=== PATIENT | male | born 1945 | race Caucasian/White ===

== ENCOUNTER → 2016-10-15 | Outpatient (CLI) | payer MEDICARE, OTHER ==
[~2016-10-15] MED LIST: CYCL1TAB18 PO; NOR10T GT; OMEP20CA5 OR; ROSU5TAB5 PO; TIOTCAP INH
[2016-10-15 10:02] LABS: Basophils # (auto) 0 uL; Basophils % (auto) 0.3 % (0.0-2.0); Eosinophils # (auto) 0.4 uL; Eosinophils % (auto) 3.3 % (0.0-7.0); Hematocrit 45.4 % (41.0-53.0); Hemoglobin 14.3 g/dL (13.5-17.5); Lymphocytes # (auto) 2.9 uL; Lymphocytes % (auto) 26.8 % (10.0-50.0); Mean Corpuscular Hemoglobin 28.5 pg (28.0-32.0); Mean Corpuscular Hgb Conc. 31.5 g/dL (32.0-36.0); Mean Corpuscular Volume 90.6 fL (80.0-100.0); Mean Platelet Volume 7.9 fL (7.4-10.4); Monocytes # (auto) 0.8 uL; Monocytes % (auto) 6.9 % (0.0-12.0); Neutrophils # (auto) 6.8 uL; Neutrophils % (auto) 62.7 % (37.0-80.0); Platelet Count (auto) 331 10^3/uL (140-450); Red Cell Distribution Width 13.4 % (11.6-16.0); White Blood Cell 10.9 10^3/uL (4.4-10.8)
[2016-10-15 10:47] LABS: Albumin 3.8 g/dL (3.4-5.0); BUN/Creatinine Ratio 21.8; Bilirubin, Total 0.4 mg/dL (0.2-1.0); Calcium 8.9 mg/dL (8.5-10.1); Total Protein 7.4 g/dL (6.4-8.2)
[2016-10-15 13:45] LABS: Urine Bilirubin Negative (Negative); Urine Blood Negative /uL (Negative); Urine Color Yellow (Yellow); Urine Glucose Normal (Normal); Urine Ketone Negative (Negative); Urine Mucus FEW (None Seen); Urine Nitrite Negative (Negative); Urine RBC 2 /hpf (0 - 3); Urine Urobilinogen Normal (Negative); Urine pH 6.5 (5.0-8.0)
== END | disposition home or self-care (01) ==
LOC: LAB 08:59
PROVIDERS: ATTEND Internal Medicine
DX: Z00.00 Encounter for general adult medical examination without abnormal findings (principal)
CPT/HCPCS: 36415; 80053; 80061; 81001; 83036; 85025; G0434

== ENCOUNTER → 2017-07-10 | Outpatient (CLI) | payer MEDICARE, MEDICAID ==
[~2017-07-10] MED LIST changes: -OMEP20CA5 OR; +OMEP20CA74 OR
[2017-07-10 12:22] LABS: Base Excess -1.8 mmol/L (-2.0-2.0); Blood 02Sat 87.7 % (96-100); Blood COHb 0.4 % (0.5-1.5); Blood MetHb 0.3 % (0.0-1.5); HCO3 22.2 mmol/L (22-26.0); HHb 12.2 % (0.0-5.0); MODE ROOM AIR; O2Hb 87.1 % (94.0-97.0); PCO2 35.7 mmHg (35.0-45.0); PCO2(T) 35.7 mmHg (35.0-45.0); PO2 59.9 mmHg (80.0-100.0); PO2(T) 59.9 mmHg (80.0-100.0); Sample Type Arterial; pH 7.411 (7.350-7.450)
== END | disposition home or self-care (01) ==
LOC: RT 11:12
PROVIDERS: ATTEND Internal Medicine Pulmonary Disease
DX: J44.9 Chronic obstructive pulmonary disease, unspecified (principal); I10 Essential (primary) hypertension
CPT/HCPCS: 36600; 82805

== ENCOUNTER 2017-09-23 13:53 | Inpatient (IN) | payer MEDICARE, MEDICAID ==
[~2017-09-23] VITALS: Ht 170.2 cm; Wt 59.5 kg
[2017-09-23 14:22] LABS: Basophils # (auto) 0.1 uL; Basophils % (auto) 0.8 % (0.0-2.0); Eosinophils # (auto) 0.4 uL; Eosinophils % (auto) 4.5 % (0.0-7.0); Hematocrit 37.1 % (41.0-53.0); Hemoglobin 12.2 g/dL (13.5-17.5); Lymphocytes # (auto) 1.8 uL; Lymphocytes % (auto) 22.3 % (10.0-50.0); Mean Corpuscular Hemoglobin 29.4 pg (28.0-32.0); Mean Corpuscular Hgb Conc. 32.9 g/dL (32.0-36.0); Mean Corpuscular Volume 89.4 fL (80.0-100.0); Monocytes # (auto) 0.6 uL; Monocytes % (auto) 8.2 % (0.0-12.0); Neutrophils # (auto) 5.1 uL; Neutrophils % (auto) 64.2 % (37.0-80.0); Platelet Count (auto) 302 10^3/uL (140-450); Red Blood Cells 4.16 10^6/uL (4.5-5.90); Red Cell Distribution Width 14.3 % (11.8-14.3); White Blood Cell 7.9 10^3/uL (4.4-10.8)
[2017-09-23 14:43] LABS: Alanine Aminotransferase 16 U/L (16-61); Albumin 3.3 g/dL (3.4-5.0); Alkaline Phosphatase 79 U/L (45-117); Anion Gap 7 (5-15); Aspartate Aminotransferase 13 U/L (15-37); BUN/Creatinine Ratio 28.4; Bilirubin, Total 0.3 mg/dL (0.2-1.0); Blood Urea Nitrogen 21 mg/dL (7-18); Carbon Dioxide 32 mmol/L (21-32); Chloride 104 mmol/L (98-107); GFR African American 134 mL/min; GFR Non-African American 111 mL/min; Glucose 105 mg/dL (74-106); Magnesium 2.2 mg/dL (1.6-2.6); Potassium 3.9 mmol/L (3.5-5.1); Sodium 143 mmol/L (136-145)
[2017-09-23] MEDS ORDERED: IPRATROPIUM BROM 0.5 MG/2.5ML INH SOL HHN ONE (20:00)
[2017-09-23] MEDS ORDERED: methylPREDNISolone SOD SUCC 125 MG/2 ML VL IV ONE (20:00)
[2017-09-23] MEDS ORDERED: ALBUTEROL SULF 2.5 MG/0.5ML(0.5%) NEB SOLN HHN ONE (20:00)
[2017-09-23] MEDS ORDERED: IPRATROPIUM BROM 0.5 MG/2.5ML INH SOL NEB ONE (21:30)
[2017-09-23] MEDS ORDERED: cefTRIAXone 1GM/10ml IVPUSH 10 ML IV ONE (21:30)
[2017-09-23] MEDS ORDERED: ALBUTEROL SULF 2.5 MG/0.5ML(0.5%) NEB SOLN NEB ONE (21:30)
[2017-09-23] MEDS ORDERED: ONDANSETRON HCL 4 MG/2 ML VIAL IV PRN (22:00)
[2017-09-23] MEDS ORDERED: ACETAMINOPHEN 500 MG TAB PO PRN (22:00)
[2017-09-23] MEDS ORDERED: AZITHROMYCIN 500MG/ 250ML 250 ML IV ONE (22:00)
[2017-09-23] MEDS: methylPREDNISolone SOD SUCC 40 MG/ML VL IV SCH (22:25)
[2017-09-24] MEDS: ALBUTEROL SULF 2.5 MG/0.5ML(0.5%) NEB SOLN NEB SCH ×4 (00:30→19:35)
[2017-09-24] MEDS: IPRATROPIUM BROM 0.5 MG/2.5ML INH SOL NEB SCH ×4 (00:30→19:34)
[2017-09-24 02:17] VITALS: BP 130/81
[2017-09-24] MEDS: HYDROcodone-ACET 5/325MG TAB PO PRN ×3 (03:18→22:26)
[2017-09-24] MEDS ORDERED: TEMAZEPAM 15 MG CAP PO ONE ×2 (04:45→22:00)
[2017-09-24] MEDS: methylPREDNISolone SOD SUCC 40 MG/ML VL IV SCH ×3 (06:12→22:17)
[2017-09-24 06:30] LABS: Basophils # (auto) 0 uL; Basophils % (auto) 0.1 % (0.0-2.0); Eosinophils # (auto) 0 uL; Eosinophils % (auto) 0.1 % (0.0-7.0); Hematocrit 36.7 % (41.0-53.0); Hemoglobin 11.9 g/dL (13.5-17.5); Lymphocytes # (auto) 0.5 uL; Lymphocytes % (auto) 14.9 % (10.0-50.0); Mean Corpuscular Hemoglobin 29.1 pg (28.0-32.0); Mean Corpuscular Hgb Conc. 32.5 g/dL (32.0-36.0); Mean Corpuscular Volume 89.5 fL (80.0-100.0); Monocytes # (auto) 0.1 uL; Neutrophils # (auto) 2.6 uL; Neutrophils % (auto) 82.9 % (37.0-80.0); Platelet Count (auto) 287 10^3/uL (140-450); White Blood Cell 3.2 10^3/uL (4.4-10.8)
[2017-09-24 06:52] LABS: Calcium 9.2 mg/dL (8.5-10.1); Potassium 3.9 mmol/L (3.5-5.1)
[2017-09-24 09:09] VITALS: BP 122/75
[2017-09-24] MEDS: AZITHROMYCIN 500MG/ 250ML 250 ML IV SCH (11:30)
[2017-09-24] MEDS ORDERED: PANTOPRAZOLE 40 MG TAB PO ONE (11:30)
[2017-09-24] MEDS ORDERED: POTASSIUM CHL 20 Meq TABLET PO ONE (11:30)
[2017-09-24] MEDS ORDERED: cefTRIAXone 1GM/10ml IVPUSH 10 ML IV ONE (11:30)
[2017-09-24] MEDS ORDERED: FUROSEMIDE 20 MG/2 ML VIAL IV ONE (11:30)
[2017-09-24 11:43] LABS: Urine Bacteria NONE SEEN /hpf (None Seen); Urine Blood Negative /uL (Negative); Urine Hyaline Cast FEW /lpf (0 - 2); Urine Mucus FEW (None Seen); Urine Specific Gravity 1.033 (1.001-1.035); Urine WBC 3 /hpf (0 - 3)
[2017-09-24 12:00] VITALS: BP 112/63
[2017-09-24] MEDS: CYCLOBENZAPRINE HCL 10 MG TAB PO SCH ×2 (14:19→22:18)
[2017-09-24 17:30] VITALS: BP 114/79
[2017-09-24] MEDS: BUDESONIDE (INHALATION) 0.5 MG/2 ML NEB NEB SCH (19:35)
[2017-09-24 20:00] VITALS: BP 116/89
[2017-09-24 22:00] VITALS: BP 116/89
[2017-09-24] MEDS: ATORVASTATIN 20 MG TAB PO SCH (22:18)
[2017-09-25 05:00] VITALS: BP 105/76
[2017-09-25] MEDS: CYCLOBENZAPRINE HCL 10 MG TAB PO SCH ×3 (05:41→21:56)
[2017-09-25] MEDS: methylPREDNISolone SOD SUCC 40 MG/ML VL IV SCH ×2 (05:41→21:56)
[2017-09-25] MEDS: ALBUTEROL SULF 2.5 MG/0.5ML(0.5%) NEB SOLN NEB SCH ×4 (06:00→19:36)
[2017-09-25] MEDS: IPRATROPIUM BROM 0.5 MG/2.5ML INH SOL NEB SCH ×4 (06:00→19:36)
[2017-09-25 07:00] LABS: BUN/Creatinine Ratio 33.3; Calcium 9.4 mg/dL (8.5-10.1); Magnesium 2.3 mg/dL (1.6-2.6); Potassium 4.7 mmol/L (3.5-5.1)
[2017-09-25 08:00] VITALS: BP 112/86
[2017-09-25 09:00] VITALS: BP 112/86
[2017-09-25] MEDS: AZITHROMYCIN 500MG/ 250ML 250 ML IV SCH (09:28)
[2017-09-25] MEDS: cefTRIAXone 1GM/10ml IVPUSH 10 ML IV SCH (09:29)
[2017-09-25] MEDS: PANTOPRAZOLE 40 MG TAB PO SCH (09:29)
[2017-09-25] MEDS: BUDESONIDE (INHALATION) 0.5 MG/2 ML NEB NEB SCH ×2 (10:00→19:36)
[2017-09-25] MEDS: HYDROcodone-ACET 5/325MG TAB PO PRN ×2 (12:00→21:56)
[2017-09-25 13:00] VITALS: BP 117/80
[2017-09-25 17:00] VITALS: BP 111/72
[2017-09-25 21:56] VITALS: BP 108/76
[2017-09-25] MEDS: ATORVASTATIN 20 MG TAB PO SCH (21:56)
[2017-09-26] VITALS (7 sets, daily range): BP systolic 107–151; BP diastolic 69–103
[2017-09-26] MEDS: CYCLOBENZAPRINE HCL 10 MG TAB PO SCH ×3 (05:51→22:05)
[2017-09-26] MEDS: ALBUTEROL SULF 2.5 MG/0.5ML(0.5%) NEB SOLN NEB SCH ×5 (06:00→22:54)
[2017-09-26] MEDS: IPRATROPIUM BROM 0.5 MG/2.5ML INH SOL NEB SCH ×5 (06:00→22:54)
[2017-09-26 06:57] LABS: Basophils # (auto) 0 uL; Eosinophils # (auto) 0 uL; Hematocrit 36.8 % (41.0-53.0); Hemoglobin 12.2 g/dL (13.5-17.5); Lymphocytes % (auto) 10.8 % (10.0-50.0); Mean Corpuscular Hemoglobin 29.4 pg (28.0-32.0); Mean Corpuscular Hgb Conc. 33.1 g/dL (32.0-36.0); Monocytes # (auto) 0.3 uL; Neutrophils % (auto) 86.2 % (37.0-80.0); Platelet Count (auto) 299 10^3/uL (140-450); Red Blood Cells 4.13 10^6/uL (4.5-5.90); Red Cell Distribution Width 14.4 % (11.8-14.3); White Blood Cell 9.2 10^3/uL (4.4-10.8)
[2017-09-26 07:12] LABS: BUN/Creatinine Ratio 38.5; Calcium 8.6 mg/dL (8.5-10.1); Potassium 4.9 mmol/L (3.5-5.1)
[2017-09-26] MEDS: PANTOPRAZOLE 40 MG TAB PO SCH (09:48)
[2017-09-26] MEDS: methylPREDNISolone SOD SUCC 40 MG/ML VL IV SCH ×2 (09:48→22:05)
[2017-09-26] MEDS: cefTRIAXone 1GM/10ml IVPUSH 10 ML IV SCH (09:48)
[2017-09-26] MEDS: AZITHROMYCIN 250 MG TAB PO SCH (09:48)
[2017-09-26] MEDS: HYDROcodone-ACET 5/325MG TAB PO PRN ×2 (09:49→22:05)
[2017-09-26] MEDS: BUDESONIDE (INHALATION) 0.5 MG/2 ML NEB NEB SCH ×2 (13:26→18:43)
[2017-09-26] MEDS: ATORVASTATIN 20 MG TAB PO SCH (22:05)
[2017-09-27 05:38] VITALS: BP 122/75
[2017-09-27] MEDS: CYCLOBENZAPRINE HCL 10 MG TAB PO SCH ×3 (06:15→21:34)
[2017-09-27] MEDS: BUDESONIDE (INHALATION) 0.5 MG/2 ML NEB NEB SCH ×2 (07:27→19:03)
[2017-09-27] MEDS: IPRATROPIUM BROM 0.5 MG/2.5ML INH SOL NEB SCH ×3 (07:27→19:03)
[2017-09-27] MEDS: ALBUTEROL SULF 2.5 MG/0.5ML(0.5%) NEB SOLN NEB SCH ×3 (07:27→19:03)
[2017-09-27] MEDS: HYDROcodone-ACET 5/325MG TAB PO PRN ×2 (08:27→21:49)
[2017-09-27] MEDS: cefTRIAXone 1GM/10ml IVPUSH 10 ML IV SCH (08:30)
[2017-09-27 09:00] VITALS: BP 127/79
[2017-09-27] MEDS: PANTOPRAZOLE 40 MG TAB PO SCH (09:39)
[2017-09-27] MEDS: AZITHROMYCIN 250 MG TAB PO SCH (09:39)
[2017-09-27] MEDS: methylPREDNISolone SOD SUCC 40 MG/ML VL IV SCH ×2 (09:39→21:34)
[2017-09-27 13:00] VITALS: BP 115/76
[2017-09-27 17:00] VITALS: BP 145/86
[2017-09-27] MEDS: ATORVASTATIN 20 MG TAB PO SCH (21:34)
[2017-09-27 22:45] VITALS: BP 98/58
[2017-09-28] VITALS (7 sets, daily range): BP systolic 110–142; BP diastolic 73–91
[2017-09-28] MEDS: HYDROcodone-ACET 5/325MG TAB PO PRN ×3 (05:29→21:47)
[2017-09-28] MEDS: CYCLOBENZAPRINE HCL 10 MG TAB PO SCH ×3 (05:29→21:47)
[2017-09-28] MEDS: ALBUTEROL SULF 2.5 MG/0.5ML(0.5%) NEB SOLN NEB SCH ×3 (05:55→19:48)
[2017-09-28] MEDS: IPRATROPIUM BROM 0.5 MG/2.5ML INH SOL NEB SCH ×3 (05:55→19:49)
[2017-09-28] MEDS: BUDESONIDE (INHALATION) 0.5 MG/2 ML NEB NEB SCH ×2 (06:08→19:49)
[2017-09-28] MEDS: cefTRIAXone 1GM/10ml IVPUSH 10 ML IV SCH (09:42)
[2017-09-28] MEDS: PANTOPRAZOLE 40 MG TAB PO SCH (09:44)
[2017-09-28] MEDS: methylPREDNISolone SOD SUCC 40 MG/ML VL IV SCH ×2 (09:44→21:47)
[2017-09-28] MEDS: AZITHROMYCIN 250 MG TAB PO SCH (09:45)
[2017-09-28] MEDS ORDERED: FUROSEMIDE 20 MG/2 ML VIAL IV ONE (10:30)
[2017-09-28] MEDS ORDERED: POTASSIUM CHL 20 Meq TABLET PO ONE (10:30)
[2017-09-28] MEDS: ATORVASTATIN 20 MG TAB PO SCH (21:47)
[2017-09-29] MEDS: ALBUTEROL SULF 2.5 MG/0.5ML(0.5%) NEB SOLN NEB SCH ×3 (00:24→12:04)
[2017-09-29] MEDS: IPRATROPIUM BROM 0.5 MG/2.5ML INH SOL NEB SCH ×3 (00:24→12:04)
[2017-09-29 05:32] VITALS: BP 118/86
[2017-09-29] MEDS: CYCLOBENZAPRINE HCL 10 MG TAB PO SCH ×2 (05:40→13:54)
[2017-09-29] MEDS: BUDESONIDE (INHALATION) 0.5 MG/2 ML NEB NEB SCH (07:02)
[2017-09-29 07:30] VITALS: BP 120/91
[2017-09-29 09:00] VITALS: BP 120/71
[2017-09-29] MEDS: cefTRIAXone 1GM/10ml IVPUSH 10 ML IV SCH (10:39)
[2017-09-29] MEDS: methylPREDNISolone SOD SUCC 40 MG/ML VL IV SCH (10:41)
[2017-09-29] MEDS: AZITHROMYCIN 250 MG TAB PO SCH (10:41)
[2017-09-29] MEDS: PANTOPRAZOLE 40 MG TAB PO SCH (10:41)
[2017-09-29] MEDS: HYDROcodone-ACET 5/325MG TAB PO PRN ×2 (10:42→14:37)
[2017-09-29 12:38] VITALS: BP 117/76
[2017-09-29 13:00] VITALS: BP 133/78
[2017-11-20] MEDS ORDERED: ALBU0.084 NEB (01:25)
[2017-11-20] MEDS ORDERED: ALBUAER3 IN (01:27)
[2017-11-20] MEDS ORDERED: FENT25DI2 TD (01:28)
== END 2017-09-29 15:15 | disposition home or self-care (01) | DRG 190 ==
LOC: ER 13:53 → OVERFLOW 13:54 → EAST 09-24 08:49
PROVIDERS: ADMIT Nurse Practitioner Family; ATTEND Internal Medicine
DX: J44.0 Chronic obstructive pulmonary disease with (acute) lower respiratory infection (principal); J18.9 Pneumonia, unspecified organism; J96.10 Chronic respiratory failure, unspecified whether with hypoxia or hypercapnia; D64.9 Anemia, unspecified; E44.1 Mild protein-calorie malnutrition; J44.1 Chronic obstructive pulmonary disease with (acute) exacerbation; E78.5 Hyperlipidemia, unspecified; I10 Essential (primary) hypertension; K21.9 Gastro-esophageal reflux disease without esophagitis; Z79.899 Other long term (current) drug therapy; Z82.49 Family history of ischemic heart disease and other diseases of the circulatory system; Z87.891 Personal history of nicotine dependence; Z68.20 Body mass index [BMI] 20.0-20.9, adult; Z90.89 Acquired absence of other organs
CPT/HCPCS: 36415; 36600; 71045; 71046; 80048; 80053; 81001; 82805; 83605; 83735; 83880; 84484; 85025; 87040; 87081; 87400; 93005; 94640; 96365; 96366; 96375

== ENCOUNTER 2017-10-17 15:43 | Inpatient (IN) | payer MEDICARE, MEDICAID ==
[~2017-10-17] VITALS: Ht 170.2 cm; Wt 57.2 kg
[2017-10-17 16:43] LABS: Basophils # (auto) 0 uL; Basophils % (auto) 0.6 % (0.0-2.0); Eosinophils # (auto) 0.8 uL; Eosinophils % (auto) 10.2 % (0.0-7.0); Hematocrit 37.7 % (41.0-53.0); Hemoglobin 12.3 g/dL (13.5-17.5); Lymphocytes # (auto) 1.7 uL; Lymphocytes % (auto) 23.6 % (10.0-50.0); Mean Corpuscular Hgb Conc. 32.5 g/dL (32.0-36.0); Mean Corpuscular Volume 89.1 fL (80.0-100.0); Monocytes # (auto) 0.5 uL; Monocytes % (auto) 7.4 % (0.0-12.0); Neutrophils # (auto) 4.3 uL; Neutrophils % (auto) 58.2 % (37.0-80.0); Nucleated Red Blood Cells % 0.1 %; Platelet Count (auto) 219 10^3/uL (140-450); Red Blood Cells 4.24 10^6/uL (4.5-5.90); Red Cell Distribution Width 14.9 % (11.8-14.3); White Blood Cell 7.4 10^3/uL (4.4-10.8)
[2017-10-17] MEDS ORDERED: methylPREDNISolone SOD SUCC 125 MG/2 ML VL IV ONE (17:00)
[2017-10-17] MEDS ORDERED: IPRATROPIUM BROM 0.5 MG/2.5ML INH SOL HHN ONE (17:00)
[2017-10-17] MEDS ORDERED: ALBUTEROL SULF 2.5 MG/0.5ML(0.5%) NEB SOLN HHN ONE (17:00)
[2017-10-17 17:06] LABS: Alanine Aminotransferase 26 U/L (16-61); Albumin 3.3 g/dL (3.4-5.0); Alkaline Phosphatase 74 U/L (45-117); Anion Gap 6 (5-15); Aspartate Aminotransferase 14 U/L (15-37); BUN/Creatinine Ratio 28.3; Bilirubin, Total 0.3 mg/dL (0.2-1.0); Blood Urea Nitrogen 17 mg/dL (7-18); Calcium 8.9 mg/dL (8.5-10.1); Carbon Dioxide 32 mmol/L (21-32); Chloride 104 mmol/L (98-107); GFR African American 171 mL/min; GFR Non-African American 141 mL/min; Glucose 98 mg/dL (74-106); Sodium 142 mmol/L (136-145); Total Protein 7.4 g/dL (6.4-8.2)
[2017-10-17] MEDS ORDERED: HYDROcodone-ACET 10/325MG TAB PO ONE (19:45)
[2017-10-17] MEDS ORDERED: CYCLOBENZAPRINE HCL 10 MG TAB PO ONE (19:45)
[2017-10-17] MEDS ORDERED: MORPHINE SULFATE 4 MG/ML SYR/VIAL IV PRN (22:30)
[2017-10-17] MEDS ORDERED: ACETAMINOPHEN 325 MG TAB PO PRN (22:30)
[2017-10-17] MEDS ORDERED: ONDANSETRON HCL 4 MG/2 ML VIAL IV PRN (22:30)
[2017-10-17] MEDS ORDERED: DOCUSATE SOD 100 MG CAP PO PRN (22:30)
[2017-10-17] MEDS ORDERED: IPRATROPIUM BROM 0.5 MG/2.5ML INH SOL NEB PRN (22:30)
[2017-10-17] MEDS ORDERED: ALBUTEROL SULF 2.5 MG/0.5ML(0.5%) NEB SOLN NEB PRN (22:30)
[2017-10-17] MEDS ORDERED: NITROGLYCERIN 0.4 MG SL TAB SL PRN (22:30)
[2017-10-18] VITALS (8 sets, daily range): BP systolic 122–151; BP diastolic 79–101
[2017-10-18] MEDS: HYDROcodone-ACET 5/325MG TAB PO PRN ×2 (01:26→08:46)
[2017-10-18] MEDS: TEMAZEPAM 15 MG CAP PO PRN (01:55)
[2017-10-18 05:26] LABS: Basophils # (auto) 0 uL; Basophils % (auto) 0.1 % (0.0-2.0); Eosinophils # (auto) 0 uL; Eosinophils % (auto) 0.2 % (0.0-7.0); Hematocrit 36.4 % (41.0-53.0); Hemoglobin 12.1 g/dL (13.5-17.5); Lymphocytes # (auto) 0.6 uL; Lymphocytes % (auto) 13.6 % (10.0-50.0); Mean Corpuscular Hemoglobin 29.4 pg (28.0-32.0); Mean Corpuscular Hgb Conc. 33.3 g/dL (32.0-36.0); Mean Corpuscular Volume 88.3 fL (80.0-100.0); Monocytes # (auto) 0.1 uL; Monocytes % (auto) 1.4 % (0.0-12.0); Neutrophils # (auto) 3.7 uL; Neutrophils % (auto) 84.7 % (37.0-80.0); Nucleated Red Blood Cells % 0.2 %; Platelet Count (auto) 205 10^3/uL (140-450); Red Blood Cells 4.12 10^6/uL (4.5-5.90); Red Cell Distribution Width 15.2 % (11.8-14.3); White Blood Cell 4.4 10^3/uL (4.4-10.8)
[2017-10-18 05:42] LABS: Albumin 3.1 g/dL (3.4-5.0); BUN/Creatinine Ratio 24.7; Bilirubin, Total 0.3 mg/dL (0.2-1.0); Calcium 8.6 mg/dL (8.5-10.1); Potassium 4.6 mmol/L (3.5-5.1); Total Protein 7.2 g/dL (6.4-8.2)
[2017-10-18] MEDS: cefTRIAXone 1GM/10ml IVPUSH 10 ML IV SCH (08:45)
[2017-10-18 09:08] LABS: Urine Bacteria NONE SEEN /hpf (None Seen); Urine Blood Negative /uL (Negative); Urine Mucus FEW (None Seen); Urine Specific Gravity 1.028 (1.001-1.035); Urine WBC 1 /hpf (0 - 3)
[2017-10-18] MEDS: methylPREDNISolone SOD SUCC 125 MG/2 ML VL IV SCH ×2 (09:47→22:09)
[2017-10-18] MEDS: FAMOTIDINE 20 MG TAB PO SCH ×2 (09:47→22:08)
[2017-10-18] MEDS: ENOXAPARIN SOD 40 MG/0.4 ML SYRINGE SC SCH (09:48)
[2017-10-18] MEDS ORDERED: IOHEXOL 350 MG/ML 100ML IJ ONE (10:39)
[2017-10-18] MEDS ORDERED: ALBUTEROL SULF 2.5 MG/0.5ML(0.5%) NEB SOLN NEB PRN (10:45)
[2017-10-18] MEDS ORDERED: OSELTAMIVIR 75 MG CAP PO ONE (10:45)
[2017-10-18] MEDS: ALBUTEROL SULF 2.5 MG/0.5ML(0.5%) NEB SOLN NEB SCH ×2 (11:56→18:18)
[2017-10-18] MEDS: IPRATROPIUM BROM 0.5 MG/2.5ML INH SOL NEB SCH ×2 (11:56→18:18)
[2017-10-18] MEDS: CYCLOBENZAPRINE HCL 10 MG TAB PO SCH ×2 (14:21→22:09)
[2017-10-18] MEDS: HYDROcodone-ACET 10/325MG TAB PO PRN ×2 (14:23→22:10)
[2017-10-18] MEDS ORDERED: ATORVASTATIN 20 MG TAB PO SCH (22:00)
[2017-10-18] MEDS ORDERED: OSELTAMIVIR 75 MG CAP PO SCH (22:00)
[2017-10-18] MEDS ORDERED: CRESTOR 5 MG PO SCH (22:00)
[2017-10-19] MEDS: TEMAZEPAM 15 MG CAP PO PRN (01:45)
[2017-10-19 05:00] VITALS: BP 114/68
[2017-10-19] MEDS: IPRATROPIUM BROM 0.5 MG/2.5ML INH SOL NEB SCH ×2 (05:58→11:39)
[2017-10-19] MEDS: ALBUTEROL SULF 2.5 MG/0.5ML(0.5%) NEB SOLN NEB SCH ×2 (05:58→11:39)
[2017-10-19] MEDS: CYCLOBENZAPRINE HCL 10 MG TAB PO SCH ×2 (06:01→13:43)
[2017-10-19] MEDS: HYDROcodone-ACET 10/325MG TAB PO PRN ×2 (06:01→12:25)
[2017-10-19 08:00] VITALS: BP 138/98
[2017-10-19 08:34] VITALS: BP 138/98
[2017-10-19] MEDS: cefTRIAXone 1GM/10ml IVPUSH 10 ML IV SCH (09:22)
[2017-10-19] MEDS: FAMOTIDINE 20 MG TAB PO SCH (09:22)
[2017-10-19] MEDS: ENOXAPARIN SOD 40 MG/0.4 ML SYRINGE SC SCH (09:22)
[2017-10-19] MEDS: methylPREDNISolone SOD SUCC 125 MG/2 ML VL IV SCH (09:22)
[2017-10-19 13:01] VITALS: BP 156/94
[2017-11-20] MEDS ORDERED: ALBU0.084 NEB (01:25)
[2017-11-20] MEDS ORDERED: ALBUAER3 IN (01:27)
[2017-11-20] MEDS ORDERED: FENT25DI2 TD (01:28)
== END 2017-10-19 15:40 | disposition home or self-care (01) | DRG 193 ==
LOC: ER 15:48 → TELE 15:49 → TELE-CENTR 23:40
PROVIDERS: ADMIT Nurse Practitioner; ATTEND Family Medicine
PROC: 5A09357 Assistance with Respiratory Ventilation, Less than 24 Consecutive Hours, Continuous Positive Airway Pressure (ICD-10-PCS; principal; 2017-10-17)
DX: J18.9 Pneumonia, unspecified organism (principal); J96.20 Acute and chronic respiratory failure, unspecified whether with hypoxia or hypercapnia; Z99.81 Dependence on supplemental oxygen; J44.0 Chronic obstructive pulmonary disease with (acute) lower respiratory infection; J44.1 Chronic obstructive pulmonary disease with (acute) exacerbation; E78.5 Hyperlipidemia, unspecified; I70.0 Atherosclerosis of aorta; I10 Essential (primary) hypertension; J20.9 Acute bronchitis, unspecified; K21.9 Gastro-esophageal reflux disease without esophagitis; Z82.49 Family history of ischemic heart disease and other diseases of the circulatory system; Z87.891 Personal history of nicotine dependence
CPT/HCPCS: 36415; 36600; 71046; 71275; 80053; 81001; 82805; 83605; 83735; 83880; 84484; 85025; 85379; 87040; 87070; 87081; 87205; 87804; 93005; 94640; 94660; 96374

== ENCOUNTER → 2017-11-10 | Outpatient (CLI) | payer MEDICARE, MEDICAID ==
[~2017-11-10] MED LIST changes: +ALBU0.084 NEB; +ALBUAER3 IN; +ALBUTEROL SULF 2.5 MG/0.5ML(0.5%) NEB SOLN ONE; +FENT25DI2 TD
== END | disposition home or self-care (01) ==
LOC: RT 08:36
PROVIDERS: ATTEND Internal Medicine Pulmonary Disease
DX: J44.9 Chronic obstructive pulmonary disease, unspecified (principal)
CPT/HCPCS: 94060